=== PATIENT | female | born 1960 | race Caucasian/White ===

== ENCOUNTER → 2016-04-21 | Outpatient (CLI) | payer BC ==
[~2016-04-21] MED LIST: ASPEC81 PO; ASPI81TA28 PO; CIPR-255 PO; ERGO1CAP41 PO; GLUC250C5 PO; HYDR5SYP11 PO; LINA1CAP2 PO; MULTTAB58 PO; OMEGCAP2 PO
== END | disposition home or self-care (01) ==
LOC: C.LABSPEC 17:44
PROVIDERS: ATTEND Nurse Practitioner Family
DX: J02.9 Acute pharyngitis, unspecified (principal)

== ENCOUNTER 2016-04-23 22:41 | Emergency (ER) | payer BC ==
[~2016-04-23] VITALS: Ht 167.6 cm; Wt 78.8 kg
[~2016-04-23 22:41] MED LIST changes: -ASPI81TA28 PO; -HYDR5SYP11 PO
[2016-04-23 22:46] VITALS: TEMP 36.7; Ht 167.6 cm; Wt 78.8 kg
[2016-04-23] MEDS ORDERED: ASPI81TA28 PO (23:15)
[2016-04-23] MEDS ORDERED: ALBUTEROL HFA 8 GM INHALER INH ONE (23:30)
[2016-04-24 00:15] VITALS: BP 136/89; PULSE 80; O2SAT 96
[2016-04-24] MEDS ORDERED: HYDR5SYP11 PO (00:17)
[2016-04-24] MEDS ORDERED: HYCODAN 60ML BOTTLE HOMEPACK PO ONE (00:30)
--- NOTE | 2016-04-24 01:48 | EMERGENCY ROOM VISIT NOTE ---
History Report prepared by Romulo: Tru Funk Under the Supervision of: Dr. Ankur Godwin M.D. First contact with patient: 23:16 Chief Complaint: SINUS CONGESTION/PRESSURE Stated Complaint: WHEEZING,SINUS PAIN Nursing Triage Summary: Pt complains of cough, congestion, and sore throat. Pt saw her PCP this week but pt reports her symptoms are worse. History of Present Illness The patient is a 56 year old female who presents to the Emergency Room with complaints of persistent cough for the past four days. The cough is non- productive. She experiences soreness in her chest with episodes of coughing only. The patient also complains of low grade fevers, sinus congestion, rhinorrhea, and sore throat. She also notes some wheezing. She denies shortness of breath. The patient saw her PCP two days ago for these symptoms, where she had negative strep and influenza tests. She was not started on any medications. The patient is not a smoker. She denies any history of asthma. Source of History: patient Onset: four days Position: other (respiratory) Quality: other (non-productive) Timing: other (persistent) Associated Symptoms: + chest pain (coughing only), + cough, + fevers, + sorethroat, No SOB Review of Systems See HPI for pertinent positives & negatives. A total of 10 systems reviewed and were otherwise negative. Past Medical & Surgical Surgical Problems: (1) History of mastectomy Family History Cancer Gallbladder disease Hypertension Kidney disease Kidney stones Social History Smoking Status: Never Smoker Alcohol Use: occasionally Drug Use: none Marital Status: Housing Status: lives with family Occupation Status: employed Current/Historical Medications Scheduled Aspirin (Aspirin Ec), 81 MG PO DAILY Hydrocodone W/ Homatropine (Hycodan 5/1.5MG 5 Ml), 5 ML PO Q4H Linaclotide (Linzess), 290 MCG PO DAILY [place]-3 Fatty Acids (Fish Oil), 2 CAP PO DAILY Allergies Coded Allergies: Ertapenem (Verified Allergy, Severe, SOB, LIGHT HEADED, 04/23/16) Penicillins (Verified Allergy, Severe, SYNCOPE, SOB, 04/23/16) Azithromycin (Unverified Adverse Reaction, Mild, SYNCOPE, 04/23/16) Physical Exam Vital Signs Date Time Temp Pulse Resp B/P Pulse Ox O2 Delivery O2 Flow Rate FiO2 04/24/16 00:15 80 16 136/89 96 Room Air 04/23/16 22:46 36.7 92 20 140/73 97 Room Air Physical Exam Constitutional: Vital signs reviewed. Frequent cough. Eyes: Pupils are equal round reactive to light. Conjunctiva are noninjected. ENT: Pharynx is clear without erythema or exudate. Mucous membranes are moist. Neck supple without meningeal signs. Respiratory: Clear to auscultation bilaterally. Breath sounds are equal bilaterally. Cardiovascular: Regular rate and rhythm. No rubs or gallops. GI: Soft, nondistended and nontender. Bowel sounds are present. Musculoskeletal: No peripheral edema. No lower extremity tenderness. Some chest wall tenderness. Integumentary: No cyanosis. Neurological: The patient is awake and alert. No focal deficits. Psychiatric: Normal affect. Medical Decision & Procedures ER Provider Diagnostic Interpretation: X-ray results as stated below per interpretation by me. CHEST TWO VIEWS ROUTINE: No acute cardiopulmonary process. Medications Administered Medications (Trade) Dose Ordered Sig/Antonio Route Start Time Stop Time Status Last Admin Dose Admin Albuterol (Ventolin Hfa Inhaler) 2 puffs NOW ONCE INH 04/23/16 23:30 04/23/16 23:31 DC 04/23/16 23:31 2 PUFFS Hydrocodone Bit/ Homatropine Methylb (Hycodan Elix Homepack 5/1.5MG/ 5ML) 1 homepack UD ONCE PO 04/24/16 00:30 04/24/16 00:31 DC 04/24/16 00:20 1 HOMEPACK ED Course 2322: The patient was evaluated in room A10. A complete history and physical exam was performed. 2330: Albuterol 2 puffs INH. 0016: I discussed tonight's findings with her. She verbalized agreement of the treatment plan. She was discharged home. 0030: Hycodan Elix Homepack 5/1.5 mg / 5 ml PO. Medical Decision This is a 56-year-old female who presents with cough. Differential diagnosis includes pneumonia, bronchitis, URI. I did perform a limited focused review of portions of the patient's old chart on the electronic medical record. The patient has had no recent pertinent visits to this hospital. I did evaluate the patient as noted above. I did order and personally review the patient's chest x-ray as described above. There is no evidence of pneumonia. I did discuss the test results with the patient. She was given an albuterol MDI and Hycodan for her cough. She was given precautions regarding this medication. She was advised follow up with her doctor. Impression Primary Impression: Bronchitis, acute Scribe Attestation The scribe's documentation has been prepared under my direct and personally reviewed by me in its entirety. I confirm that the note above accurately reflects all work, treatment, procedures, and medical decision making performed by me. Departure Information Dispostion Home / Self-Care Prescriptions Hydrocodone W/ Homatropine (HYCODAN 5/1.5MG 5 ML) 1 Syp Syp 5 ML PO Q4H, #200 ML Prov: Ankur Godwin M.D. 04/24/16 Referrals No Doctor, Assigned (PCP) Forms HOME CARE DOCUMENTATION FORM, IMPORTANT VISIT INFORMATION, WORK / SCHOOL INSTRUCTIONS Patient Instructions Bronchitis Acute, My [facility] Additional Instructions You have been examined and treated today on an emergency basis only. This is not a substitute for, or an effort to provide, complete comprehensive medical care. It is impossible to recognize and treat all injuries or illnesses in a single emergency department visit. It is therefore important that you follow up closely with your physician. Call as soon as possible for an appointment. Return for worsening symptoms or if you develop fever, vomiting, or any other concerning symptoms.
--- NOTE | 2016-04-24 06:49 | DIAGNOSTIC IMAGING REPORT ---
CHEST 2 VIEWS ROUTINE CLINICAL HISTORY: Cough. COMPARISON STUDY: No previous studies for comparison. FINDINGS: There are numerous surgical clips projecting over the chest. There is no pneumothorax or pleural effusion. No consolidation is identified. Cardiac size is normal. Mediastinal contours are normal. There is no evidence of pulmonary edema. IMPRESSION: No acute cardiopulmonary findings. Electronically signed by: Arnoldo Villavicencio M.D. 04/24/2016 6:48 AM Dictated Date/Time: 04/24/2016 6:47 AM
== END 2016-04-24 00:23 | disposition home or self-care (01) ==
LOC: C.EDB 22:42 → C.EDA 04-24 00:23
DX: J20.9 Acute bronchitis, unspecified (principal); Z79.82 Long term (current) use of aspirin

== ENCOUNTER → 2016-08-14 | Outpatient (CLI) | payer BC ==
[~2016-08-14] MED LIST changes: -ASPEC81 PO; +ASPI81TA28 PO; -CIPR-255 PO; -ERGO1CAP41 PO; -GLUC250C5 PO; -MULTTAB58 PO; +POLY335019 PO
--- NOTE | 2016-08-14 15:39 | DIAGNOSTIC IMAGING REPORT ---
Ultrasound left calf EXTREMITY NONVASCULAR LIMITED CLINICAL HISTORY: M79.605 Chronic pain of left lower extremity For: Palpable painful nodule TECHNIQUE: Ultrasound COMPARISON STUDY: None FINDINGS: At the site of clinically palpable nodularity, tenderness, is an isoechoic nodule measuring 1.7 x 1.3 cm. This may represent a subcutaneous lipoma. IMPRESSION: Nodular density of the calf appears to represent a well-circumscribed lipoma. Electronically signed by: Luke Junior M.D. 08/14/2016 3:38 PM Dictated Date/Time: 08/14/2016 3:36 PM
== END | disposition home or self-care (01) ==
LOC: C.ULTR 14:48
PROVIDERS: ATTEND Nurse Practitioner
DX: M79.605 Pain in left leg (principal)

== ENCOUNTER → 2016-11-10 | Outpatient (CLI) | payer BC ==
[2016-11-10 11:30] LABS: CHOLESTEROL/HDL RATIO 2.2
== END | disposition home or self-care (01) ==
LOC: C.LABBC 07:24
PROVIDERS: ATTEND Family Medicine
DX: Z00.00 Encounter for general adult medical examination without abnormal findings (principal); Z13.220 Encounter for screening for lipoid disorders; Z13.1 Encounter for screening for diabetes mellitus

== ENCOUNTER 2016-12-10 19:22 | Emergency (ER) | payer BC ==
[~2016-12-10] VITALS: Ht 167.6 cm; Wt 75.0 kg
[~2016-12-10 19:22] MED LIST changes: -POLY335019 PO
[2016-12-10 19:38] VITALS: BP 129/65; PULSE 72; TEMP 37.3; O2SAT 95; Ht 167.6 cm; Wt 75.0 kg
--- NOTE | 2016-12-10 21:16 | DIAGNOSTIC IMAGING REPORT ---
SACRUM COCCYX MIN 2 VIEWS CLINICAL HISTORY: 56 years-old Female presenting with fall, tailbone pain. TECHNIQUE: Frontal and lateral views of the sacrococcygeal region was obtained. COMPARISON: CT from 2013. FINDINGS: Anterior angulation of the coccyx at the sacrococcygeal junction unchanged. No evidence of fracture or disarticulation. Arcuate lines intact. No radiographic evidence of sacral fracture. Sacroiliac joints intact. Scattered surgical clips noted in the pelvis. Moderate stool burden. IMPRESSION: No acute osseous injury of the sacrococcygeal region. Electronically signed by: Francisco Jiménez M.D. 12/10/2016 9:15 PM Dictated Date/Time: 12/10/2016 9:12 PM
--- NOTE | 2016-12-10 21:17 | DIAGNOSTIC IMAGING REPORT ---
R FINGER(S) MIN 2 VIEWS ROUTINE CLINICAL HISTORY: 56 years-old Female presenting with right 3rd finger pain, injury. TECHNIQUE: Frontal, oblique, and lateral views of the right third finger were obtained. COMPARISON: None. FINDINGS: A marker delineates the dorsum of the proximal interphalangeal joint. At this site, no specific injury is noted. No acute fracture or malalignment. No radiographic evidence of soft tissue injury or swelling. IMPRESSION: No acute osseous injury of the right third finger. Electronically signed by: Francisco Jiménez M.D. 12/10/2016 9:16 PM Dictated Date/Time: 12/10/2016 9:15 PM
--- NOTE | 2016-12-10 21:20 | DIAGNOSTIC IMAGING REPORT ---
L ANKLE MIN 3 VIEWS ROUTINE CLINICAL HISTORY: 56 years-old Female presenting with left ankle injury, fall. TECHNIQUE: Frontal, mortise, and lateral views of the left ankle were obtained. COMPARISON: None. FINDINGS: Ankle mortise intact. No acute fracture or malalignment. No radiographic evidence of soft tissue swelling. Enthesophyte noted at the insertion of the Achilles tendon. IMPRESSION: No acute osseous injury of the left ankle. Electronically signed by: Francisco Jiménez M.D. 12/10/2016 9:19 PM Dictated Date/Time: 12/10/2016 9:16 PM
[2016-12-10] MEDS ORDERED: POLY335019 PO (21:31)
--- NOTE | 2016-12-10 22:04 | EMERGENCY ROOM VISIT NOTE ---
History First contact with patient: 20:01 Chief Complaint: BACK PAIN Stated Complaint: FELL, TAILBONE HURTS, LT ANKLE, AND RT 3RD DIGIT History of Present Illness The patient is a 56 year old female who presents to the Emergency Room with complaints of a fall. The patient states that she was at a wedding yesterday and was dancing when she slipped. She states that she twisted her left ankle and then fell directly onto her tailbone. She also somehow injured the right third finger. She states that the worst pain is located in her tailbone. She rates her discomfort a 6/10. She has been using ice for pain. She denies taking any medications. She denies any other injuries. She denies any radiation of the pain into her legs. There was no head injury or loss of consciousness. Review of Systems A complete 10 point review of systems was reviewed with the patient with pertinent positives and negatives as per history of present illness. All else were negative. Past Medical/Surgical History Surgical Problems: (1) History of mastectomy Family History Cancer Gallbladder disease Hypertension Kidney disease Kidney stones Social History Smoking Status: Former Smoker Alcohol Use: occasionally Drug Use: none Marital Status: Housing Status: lives with family Occupation Status: employed Current/Historical Medications Scheduled Aspirin (Aspirin Ec), 81 MG PO DAILY Linaclotide (Linzess), 290 MCG PO DAILY [place]-3 Fatty Acids (Fish Oil), 2 CAP PO DAILY Polyethylene Glycol 3350 (Miralax), 17 GM PO DAILY Physical Exam Vital Signs Date Time Temp Pulse Resp B/P (MAP) Pulse Ox O2 Delivery O2 Flow Rate FiO2 12/10/16 19:38 37.3 72 18 129/65 95 Room Air Physical Exam VITALS: Vitals are noted on the nurse's note and reviewed by myself. Vital signs stable. GENERAL: This is a 56-year-old female, in no acute distress, nondiaphoretic, well-developed well-nourished. SKIN: The skin was without rashes, erythema, edema, or bruising. HEART: Regular rate and rhythm without murmurs gallops or rubs. LUNGS: Clear to auscultation bilaterally without wheezes, rales or rhonchi. MUSCULOSKELETAL: There is tenderness to palpation over the coccyx. There is mild swelling and tenderness of the right third digit. There is minimal tenderness of the lateral aspect of the left ankle. Full range of motion of the ankle. NEURO: Patient was alert and oriented to person place and time. Medical Decision & Procedures ER Provider Diagnostic Interpretation: R FINGER(S) MIN 2 VIEWS ROUTINE FINDINGS: A marker delineates the dorsum of the proximal interphalangeal joint. At this site, no specific injury is noted. No acute fracture or malalignment. No radiographic evidence of soft tissue injury or swelling. IMPRESSION: No acute osseous injury of the right third finger. SACRUM COCCYX MIN 2 VIEWS FINDINGS: Anterior angulation of the coccyx at the sacrococcygeal junction unchanged. No evidence of fracture or disarticulation. Arcuate lines intact. No radiographic evidence of sacral fracture. Sacroiliac joints intact. Scattered surgical clips noted in the pelvis. Moderate stool burden. IMPRESSION: No acute osseous injury of the sacrococcygeal region. L ANKLE MIN 3 VIEWS ROUTINE FINDINGS: Ankle mortise intact. No acute fracture or malalignment. No radiographic evidence of soft tissue swelling. Enthesophyte noted at the insertion of the Achilles tendon. IMPRESSION: No acute osseous injury of the left ankle. Medical Decision Differential diagnosis includes fracture, contusion, dislocation, among others. The patient is a 56-year-old female who presents today complaining of right third finger, left ankle and tailbone pain after a fall. Multiple imaging studies were performed and revealed no acute fractures. Patient was informed of all findings. Her right third finger was placed in a metal finger splint. Conservative measures were discussed. The patient will follow-up with her primary care provider as needed. She verbalized understanding of my assessment and treatment plan and was discharged home in good condition. Medication Reconcilliation Current Medication List: was personally reviewed by ak Blood Pressure Screening Patient's blood pressure: Normal blood pressure Impression Primary Impression: Contusion of multiple sites Additional Impression: Fall Departure Information Dispostion Home / Self-Care Condition GOOD Referrals Georgia Sumner MD (PCP) Patient Instructions My [facility] Additional Instructions You have been treated in the Emergency Department for Back Pain. For pain control, you can use the following [id number] medicines (if >12 yo): - Regular strength (325mg/tab) Tylenol (acetaminophen) 2 tabs every 4-6 hours as needed. Do not exceed 12 tablets in a 24 hour period. Avoid taking more than 4 grams (4000 mg) of Tylenol per day. This includes any other sources of acetaminophen you may take on a regular basis. - Regular strength (200 mg/tab) Advil (ibuprofen) 1-2 tabs every 4-6 hours as needed. Do not exceed a dose of 3200 mg per day. If this is an acute injury, ice can be applied to the area of pain for the first 3 days to help decrease pain and inflammation. After the first 3 days, a heating pad can be used over the area for continued soothing relief. You may buy a donut at the pharmacy to sit on to help your tailbone pain. Return to the Emergency Department if your current symptoms worsen despite treatment course outlined above, or if you develop any of the following symptoms : intractable pain despite aforementioned treatment course, loss of control of your bowel or bladder, numbness or tingling in your groin, or development of a fever. Problem Qualifiers Additional Impression: Fall Encounter type: initial encounter Qualified Codes: W19.XXXA - Unspecified fall, initial encounter
== END 2016-12-10 22:08 | disposition home or self-care (01) ==
LOC: C.EDB 19:23 → C.EDD 22:08
DX: T14.8XXA Other injury of unspecified body region, initial encounter (principal); Y93.41 Activity, dancing; W01.0XXA Fall on same level from slipping, tripping and stumbling without subsequent striking against object, initial encounter; Z90.10 Acquired absence of unspecified breast and nipple; Z80.9 Family history of malignant neoplasm, unspecified; Z82.49 Family history of ischemic heart disease and other diseases of the circulatory system; Z84.1 Family history of disorders of kidney and ureter; Z87.891 Personal history of nicotine dependence; Z79.82 Long term (current) use of aspirin; Z79.899 Other long term (current) drug therapy

== ENCOUNTER → 2016-12-11 | Outpatient (CLI) | payer BC ==
[~2016-12-11] MED LIST changes: +POLY335019 PO
--- NOTE | 2016-12-11 12:19 | DIAGNOSTIC IMAGING REPORT ---
CHEST 2 VIEWS ROUTINE CLINICAL HISTORY: Persistent cough. COMPARISON STUDY: Chest radiograph April 23, 2016. FINDINGS: Lung volumes are normal. No pneumothorax or pleural effusion is present. Pulmonary vascularity is normal. Cardiac size is normal. There is no consolidation to suggest pneumonia. Numerous surgical clips project over each hemithorax. IMPRESSION: No acute cardiopulmonary findings. Electronically signed by: Arnoldo Villavicencio M.D. 12/11/2016 12:17 PM Dictated Date/Time: 12/11/2016 12:14 PM
== END | disposition home or self-care (01) ==
LOC: C.RAD 11:41
PROVIDERS: ATTEND Physician Assistant
DX: R05 Cough (principal)

== ENCOUNTER → 2017-03-02 | Outpatient (CLI) | payer BC ==
--- NOTE | 2017-03-02 16:05 | DIAGNOSTIC IMAGING REPORT ---
CAROTID DOPPLER NECK ART HISTORY: Mental status change R42 [id number] COMPARISON: 08/12/2009 TECHNIQUE: Real-time, grayscale, and color Doppler sonography of the carotid arteries was performed. Imaging reviewed in the transverse and longitudinal planes. All measurements were calculated based on NASCET criteria. FINDINGS: Antegrade flow is seen in the bilateral vertebral arteries. The brachial pressures are hemodynamically similar. The peak systolic velocity within the right ICA is 79. The right systolic ratio is 0.8. The peak systolic velocity within the left ICA is 89. The left systolic ratio is 0.9. IMPRESSION: No hemodynamically significant stenosis seen within the carotid arteries. No change from the prior exam The above report was generated using voice recognition software. It may contain grammatical, syntax or spelling errors. Electronically signed by: Luke Junior M.D. 03/02/2017 4:04 PM Dictated Date/Time: 03/02/2017 4:03 PM
== END | disposition home or self-care (01) ==
LOC: C.ULTRBC 15:23
PROVIDERS: ATTEND Neuromusculoskeletal Medicine & OMM
DX: R42 Dizziness and giddiness (principal)